=== PATIENT | male | born 2000 | race Caucasian/White ===

== ENCOUNTER 2023-02-02 13:34 | Inpatient (IN) | payer OTHER ==
[~2023-02-02] VITALS: Ht 180.3 cm; Wt 85.9 kg
[2023-02-02 14:37] LABS: HEMATOCRIT 44.6 % (42.0-52.0); HEMOGLOBIN 14.4 g/dl (13.5-17.5); MEAN CORPUSCULAR HEMOGLOBIN 26.5 pg (27.0-33.0); MEAN CORPUSCULAR HGB CONC 32.3 g/dl (32.0-36.5); PLATELET COUNT, AUTOMATED 251 10^3/uL (150-450); RED BLOOD COUNT 5.44 10^6/uL (4.30-6.10); WHITE BLOOD COUNT 9.6 10^3/uL (4.0-10.0)
[2023-02-02 14:59] LABS: ETHYL ALCOHOL (ETHANOL) < 0.003 % (0.000-0.010)
[2023-02-02 15:00] LABS: ACETAMINOPHEN LEVEL < 2.0 UG/ML (10.0-20.0)
[2023-02-02 15:01] LABS: ALBUMIN 4.7 G/DL (3.2-5.2); ALKALINE PHOSPHATASE 106 U/L (46-116); ALT/SGPT 35 U/L (7.0-40); AST/SGOT 20 U/L (<34); BILIRUBIN,DIRECT 0.4 MG/DL (<0.4); BILIRUBIN,TOTAL 1.1 MG/DL (0.3-1.2); BLOOD UREA NITROGEN 6 MG/DL (9-23); CALCIUM LEVEL 9.6 MG/DL (8.5-10.1); CARBON DIOXIDE LEVEL 28 MMOL/L (20-31); CHLORIDE LEVEL 102 MMOL/L (98-107); CREATININE FOR GFR 0.85 MG/DL (0.70-1.30); GLOMERULAR FILTRATION RATE > 60.0 (>60); GLUCOSE, FASTING 87 MG/DL (60-100); SALICYLATE LEVEL < 3.0 MG/DL (<30); SODIUM LEVEL 140 MMOL/L (136-145); TOTAL PROTEIN 7.8 G/DL (5.7-8.2)
[2023-02-02 15:03] LABS: THYROID STIMULATING HORMONE 0.832 uIU/ML (0.48-4.17)
[2023-02-02 15:23] LABS: AMPHETAMINES LEVEL URINE NEGATIVE (NEGATIVE); BARBITURATES URINE NEGATIVE (NEGATIVE); BENZODIAZEPINES URINE NEGATIVE (NEGATIVE); CANNABINOIDS URINE NEGATIVE (NEGATIVE); COCAINE METABOLITE URINE NEGATIVE (NEGATIVE); METHADONE URINE NEGATIVE (NEGATIVE); OPIATES URINE NEGATIVE (NEGATIVE); PHENCYCLIDINE URINE NEGATIVE (NEGATIVE)
[2023-02-02] MEDS ORDERED: diphenhydrAMINE 25MG CAP PO PRN (18:35)
[2023-02-02] MEDS ORDERED: MOM 30ML SUSPENSION UDC PO PRN (18:35)
[2023-02-02] MEDS ORDERED: MAALOX 30 ML SUSP *UDC PO PRN (18:35)
[2023-02-02] MEDS ORDERED: ACETAMINOPHEN TAB 650MG DOSE (2X325MG) PO PRN (18:35)
[2023-02-02] MEDS ORDERED: traZODone 50 MG TAB PO PRN (18:35)
[2023-02-02] MEDS ORDERED: IBUPROFEN 400MG TAB PO PRN (18:35)
[2023-02-02] MEDS ORDERED: HOME MED LIST COMPLETE! XX SCH (21:45)
[2023-02-02 23:11] VITALS: BP 129/82; TEMP 97.3; O2SAT 100
[2023-02-03 06:16] VITALS: BP 135/79; TEMP 97.6; O2SAT 100
[2023-02-03] MEDS: SERTRALINE HCL 25 MG TABLET PO SCH (15:39)
[2023-02-03 18:08] VITALS: BP 150/88; TEMP 97.4; O2SAT 99
[2023-02-04 06:07] VITALS: BP 111/66; TEMP 98.6; O2SAT 98
[2023-02-04] MEDS: SERTRALINE HCL 25 MG TABLET PO SCH (08:23)
[2023-02-04 16:10] VITALS: BP 123/64; TEMP 98.1; O2SAT 98
[2023-02-05 06:31] VITALS: BP 100/57; TEMP 97.3; O2SAT 99
[2023-02-05] MEDS: SERTRALINE HCL 50 MG TAB PO SCH (08:16)
[2023-02-05 16:12] VITALS: BP 135/61; TEMP 97.7; O2SAT 100
[2023-02-06 06:31] VITALS: BP 122/67; TEMP 97.5; O2SAT 99
[2023-02-06] MEDS: SERTRALINE HCL 50 MG TAB PO SCH (08:22)
[2023-02-06] MEDS: PROPRANOLOL 10 MG TAB PO SCH ×2 (12:10→21:10)
[2023-02-06 17:42] VITALS: BP 135/74; TEMP 97.1
[2023-02-07 06:09] VITALS: BP 123/70; TEMP 97.7; O2SAT 99
[2023-02-07] MEDS: SERTRALINE HCL 50 MG TAB PO SCH (08:37)
[2023-02-07] MEDS: PROPRANOLOL 10 MG TAB PO SCH ×2 (08:39→20:21)
[2023-02-07 17:32] VITALS: BP 135/72; TEMP 97.6; O2SAT 99
[2023-02-08 06:07] VITALS: BP 108/62; TEMP 97.6; O2SAT 97
[2023-02-08] MEDS: SERTRALINE HCL 50 MG TAB PO SCH (08:52)
[2023-02-08] MEDS: PROPRANOLOL 10 MG TAB PO SCH ×2 (08:53→20:04)
[2023-02-08 18:18] VITALS: BP 144/72; TEMP 97.5; O2SAT 99
[2023-02-09 06:17] VITALS: BP 106/54; TEMP 97.6; O2SAT 98
[2023-02-09 08:05] VITALS: BP 131/82
[2023-02-09] MEDS: SERTRALINE HCL 50 MG TAB PO SCH (08:05)
[2023-02-09] MEDS: buPROPion **XL** TABLET 150MG (WELLBUTRIN XL) PO SCH (08:05)
[2023-02-09] MEDS: PROPRANOLOL 10 MG TAB PO SCH ×2 (08:06→20:35)
[2023-02-09 17:45] VITALS: BP 130/74; TEMP 97.6; O2SAT 99
[2023-02-10 06:42] VITALS: BP 120/69; TEMP 97.4; O2SAT 98
[2023-02-10] MEDS: PROPRANOLOL 10 MG TAB PO SCH ×2 (07:45→20:44)
[2023-02-10] MEDS: SERTRALINE HCL 25 MG TABLET PO SCH (07:45)
[2023-02-10] MEDS: buPROPion **XL** TABLET 150MG (WELLBUTRIN XL) PO SCH (07:46)
[2023-02-10 17:56] VITALS: BP 121/77; TEMP 96.6; O2SAT 100
[2023-02-11 06:53] VITALS: BP 119/76; TEMP 97.5; O2SAT 97
[2023-02-11 08:25] VITALS: BP 136/74
[2023-02-11] MEDS: PROPRANOLOL 10 MG TAB PO SCH ×2 (08:26→20:05)
[2023-02-11] MEDS: SERTRALINE HCL 25 MG TABLET PO SCH (08:26)
[2023-02-11] MEDS: buPROPion **XL** TABLET 150MG (WELLBUTRIN XL) PO SCH (08:26)
[2023-02-11 17:22] VITALS: BP 134/79; TEMP 97.8
[2023-02-12 05:50] VITALS: BP 116/69; TEMP 97.6; O2SAT 98
[2023-02-12] MEDS: SERTRALINE HCL 25 MG TABLET PO SCH (08:30)
[2023-02-12] MEDS: buPROPion **XL** TABLET 150MG (WELLBUTRIN XL) PO SCH (08:30)
[2023-02-12] MEDS: PROPRANOLOL 10 MG TAB PO SCH ×2 (08:31→20:06)
[2023-02-12 16:34] VITALS: BP 145/89; TEMP 96.5; O2SAT 100
[2023-02-13 06:20] VITALS: BP 115/68; TEMP 97.5; O2SAT 99
[2023-02-13] MEDS: SERTRALINE HCL 25 MG TABLET PO SCH (08:06)
[2023-02-13] MEDS: buPROPion **XL** TABLET 150MG (WELLBUTRIN XL) PO SCH (08:07)
[2023-02-13] MEDS: PROPRANOLOL 10 MG TAB PO SCH ×2 (08:08→20:03)
[2023-02-13 18:00] VITALS: BP 146/90; TEMP 98; O2SAT 96
[2023-02-14 05:40] VITALS: BP 112/67; TEMP 97.3; O2SAT 98
[2023-02-14 08:00] VITALS: BP 112/67; TEMP 97.3; O2SAT 98
[2023-02-14] MEDS ORDERED: BUPR150T12 PO (08:33)
[2023-02-14] MEDS ORDERED: PROP10TA56 PO (08:33)
[2023-02-14] MEDS ORDERED: SERT25TA21 PO (08:33)
[2023-02-14 08:34] VITALS: BP 144/90
[2023-02-14 08:35] VITALS: BP 144/90
[2023-02-14] MEDS: PROPRANOLOL 10 MG TAB PO SCH (08:35)
[2023-02-14] MEDS: buPROPion **XL** TABLET 150MG (WELLBUTRIN XL) PO SCH (08:35)
[2023-02-14] MEDS: SERTRALINE HCL 25 MG TABLET PO SCH (08:36)
== END 2023-02-14 13:17 | disposition home or self-care (01) | DRG 885 ==
LOC: EDSEX 13:34 → EDBD 13:34 → M ED 13:34 → M ED INP 18:32 → M PSY 23:09
PROVIDERS: ADMIT Student in an Organized Health Care Education/Training Program; ATTEND Student in an Organized Health Care Education/Training Program
DX: F33.2 Major depressive disorder, recurrent severe without psychotic features (principal); R45.851 Suicidal ideations; G47.00 Insomnia, unspecified; Z62.811 Personal history of psychological abuse in childhood; Z20.822 Contact with and (suspected) exposure to COVID-19

== ENCOUNTER 2023-02-18 12:28 | Inpatient (IN) | payer OTHER ==
[~2023-02-18] VITALS: Ht 180.3 cm; Wt 83.2 kg
[2023-02-18] MEDS: NICOTINE 14 MG/24 HR TRANSDERMAL TD SCH (09:00)
[~2023-02-18 12:28] MED LIST: BUPR150T12 PO; PROP10TA56 PO; SERT25TA21 PO
[2023-02-18 13:16] LABS: HEMOGLOBIN 14.9 g/dl (13.5-17.5); MEAN CORPUSCULAR HEMOGLOBIN 26.4 pg (27.0-33.0); MEAN CORPUSCULAR HGB CONC 33.1 g/dl (32.0-36.5); MEAN CORPUSCULAR VOLUME 79.8 fl (80.0-96.0); PLATELET COUNT, AUTOMATED 297 10^3/uL (150-450); RED BLOOD COUNT 5.64 10^6/uL (4.30-6.10); WHITE BLOOD COUNT 9.4 10^3/uL (4.0-10.0)
[2023-02-18 13:43] LABS: AMPHETAMINES LEVEL URINE NEGATIVE (NEGATIVE); BARBITURATES URINE NEGATIVE (NEGATIVE)
[2023-02-18 13:44] LABS: BENZODIAZEPINES URINE NEGATIVE (NEGATIVE); CANNABINOIDS URINE NEGATIVE (NEGATIVE); COCAINE METABOLITE URINE NEGATIVE (NEGATIVE); METHADONE URINE NEGATIVE (NEGATIVE); OPIATES URINE NEGATIVE (NEGATIVE); PHENCYCLIDINE URINE NEGATIVE (NEGATIVE)
[2023-02-18 13:47] LABS: SALICYLATE LEVEL < 3.0 MG/DL (<30)
[2023-02-18 13:48] LABS: ETHYL ALCOHOL (ETHANOL) < 0.003 % (0.000-0.010)
[2023-02-18 13:49] LABS: ACETAMINOPHEN LEVEL < 2.0 UG/ML (10.0-20.0); THYROID STIMULATING HORMONE 0.996 uIU/ML (0.55-4.78)
[2023-02-18 13:50] LABS: ALBUMIN 4.9 G/DL (3.2-5.2); ALKALINE PHOSPHATASE 98 U/L (46-116); ALT/SGPT 26 U/L (7.0-40); AST/SGOT 17 U/L (<34); BILIRUBIN,DIRECT 0.5 MG/DL (<0.4); BILIRUBIN,TOTAL 1.1 MG/DL (0.3-1.2); BLOOD UREA NITROGEN 11 MG/DL (9-23); CALCIUM LEVEL 9.6 MG/DL (8.5-10.1); CARBON DIOXIDE LEVEL 26 MMOL/L (20-31); CHLORIDE LEVEL 102 MMOL/L (98-107); CREATININE FOR GFR 1.02 MG/DL (0.70-1.30); GLOMERULAR FILTRATION RATE > 60.0 (>60); GLUCOSE, FASTING 109 MG/DL (60-100); POTASSIUM SERUM 3.7 MMOL/L (3.5-5.1); SODIUM LEVEL 139 MMOL/L (136-145); TOTAL PROTEIN 7.9 G/DL (5.7-8.2)
[2023-02-18] MEDS ORDERED: traZODone 50 MG TAB PO PRN (14:25)
[2023-02-18] MEDS ORDERED: MAALOX 30 ML SUSP *UDC PO PRN (14:25)
[2023-02-18] MEDS ORDERED: IBUPROFEN 400MG TAB PO PRN (14:25)
[2023-02-18] MEDS ORDERED: ACETAMINOPHEN TAB 650MG DOSE (2X325MG) PO PRN (14:25)
[2023-02-18] MEDS ORDERED: MOM 30ML SUSPENSION UDC PO PRN (14:25)
[2023-02-18] MEDS ORDERED: MED REC IN PROGRESS XX SCH (14:25)
[2023-02-18] MEDS ORDERED: diphenhydrAMINE 25MG CAP PO PRN (14:25)
[2023-02-18] MEDS ORDERED: HOME MED LIST COMPLETE! XX SCH (14:30)
[2023-02-18 20:11] VITALS: BP 129/85; TEMP 98.3; O2SAT 95
[2023-02-18 21:13] VITALS: BP 122/92
[2023-02-18] MEDS: PROPRANOLOL 10 MG TAB PO SCH (21:14)
[2023-02-19 06:40] VITALS: BP 122/76; TEMP 97.9; O2SAT 100
[2023-02-19] MEDS: buPROPion **XL** TABLET 150MG (WELLBUTRIN XL) PO SCH (08:16)
[2023-02-19] MEDS: SERTRALINE 100 MG TAB PO SCH (08:16)
[2023-02-19] MEDS: PROPRANOLOL 10 MG TAB PO SCH ×2 (08:18→21:04)
[2023-02-19] MEDS: NICOTINE 14 MG/24 HR TRANSDERMAL TD SCH (09:00)
[2023-02-19 16:14] VITALS: BP 138/88; TEMP 98.3; O2SAT 100
[2023-02-20 06:35] VITALS: BP 119/58; TEMP 96.8; O2SAT 100
[2023-02-20] MEDS: buPROPion **XL** TABLET 150MG (WELLBUTRIN XL) PO SCH (08:45)
[2023-02-20] MEDS: SERTRALINE 100 MG TAB PO SCH (08:45)
[2023-02-20] MEDS: PROPRANOLOL 10 MG TAB PO SCH ×2 (08:45→20:34)
[2023-02-20 16:15] VITALS: BP 126/71; TEMP 97.8; O2SAT 98
[2023-02-21 06:28] VITALS: BP 114/69; TEMP 96.1; O2SAT 98
[2023-02-21] MEDS: SERTRALINE 100 MG TAB PO SCH (08:14)
[2023-02-21] MEDS: buPROPion **XL** TABLET 150MG (WELLBUTRIN XL) PO SCH (08:14)
[2023-02-21] MEDS: PROPRANOLOL 10 MG TAB PO SCH ×2 (08:15→21:01)
[2023-02-21 18:00] VITALS: BP 133/80; TEMP 97.6; O2SAT 100
[2023-02-22 06:20] VITALS: BP 127/75; TEMP 96; O2SAT 100
[2023-02-22] MEDS: PROPRANOLOL 10 MG TAB PO SCH ×2 (08:26→20:30)
[2023-02-22] MEDS: buPROPion **XL** TABLET 150MG (WELLBUTRIN XL) PO SCH (08:26)
[2023-02-22] MEDS: SERTRALINE 100 MG TAB PO SCH (08:26)
[2023-02-22 08:55] VITALS: BP 127/75; TEMP 96; O2SAT 100
[2023-02-22 18:49] VITALS: BP 137/79; TEMP 98.6; O2SAT 100
[2023-02-23 06:29] VITALS: BP 114/62; TEMP 97.2; O2SAT 100
[2023-02-23] MEDS: buPROPion **XL** TABLET 150MG (WELLBUTRIN XL) PO SCH (09:19)
[2023-02-23] MEDS: SERTRALINE 100 MG TAB PO SCH (09:19)
[2023-02-23] MEDS: PROPRANOLOL 10 MG TAB PO SCH ×2 (09:19→20:50)
[2023-02-23 17:18] VITALS: BP 123/59; TEMP 97.8; O2SAT 99
[2023-02-23 20:49] VITALS: BP 126/80
[2023-02-24 06:58] VITALS: BP 117/68; TEMP 97.6; O2SAT 98
[2023-02-24] MEDS: SERTRALINE 100 MG TAB PO SCH (08:29)
[2023-02-24] MEDS: buPROPion **XL** TABLET 150MG (WELLBUTRIN XL) PO SCH (08:29)
[2023-02-24] MEDS: PROPRANOLOL 10 MG TAB PO SCH ×2 (08:29→21:09)
[2023-02-24 17:12] VITALS: BP 164/93; TEMP 96.4; O2SAT 97
[2023-02-25 06:52] VITALS: BP 143/70; TEMP 97.1; O2SAT 100
[2023-02-25 08:16] VITALS: BP 143/70
[2023-02-25] MEDS: buPROPion **XL** TABLET 150MG (WELLBUTRIN XL) PO SCH (08:16)
[2023-02-25] MEDS: SERTRALINE 100 MG TAB PO SCH (08:16)
[2023-02-25] MEDS: PROPRANOLOL 10 MG TAB PO SCH (08:16)
[2023-02-25] MEDS ORDERED: BUPR150T12 PO (12:22)
[2023-02-25] MEDS ORDERED: ZOLO100T PO (12:22)
== END 2023-02-25 13:35 | disposition home or self-care (01) | DRG 885 ==
LOC: M ED 12:28 → M ED INP 15:28 → M PSY 20:27
PROVIDERS: ADMIT Student in an Organized Health Care Education/Training Program; ATTEND Student in an Organized Health Care Education/Training Program
DX: F33.2 Major depressive disorder, recurrent severe without psychotic features (principal); R45.851 Suicidal ideations; G47.00 Insomnia, unspecified; Z76.5 Malingerer [conscious simulation]; Z62.811 Personal history of psychological abuse in childhood; Z20.822 Contact with and (suspected) exposure to COVID-19; Z79.899 Other long term (current) drug therapy